=== PATIENT | male | born 1990 | race Caucasian/White ===

== ENCOUNTER 2019-03-26 16:32 | Emergency (ER) | payer SELFPAY ==
[~2019-03-26] VITALS: Ht 185.4 cm; Wt 148.3 kg
[2019-03-26] MEDS ORDERED: ASPIRIN 325 MG TABLET PO ONE (17:00)
[2019-03-26] MEDS ORDERED: MORPHINE SULFATE 2 MG/ML VIAL. IV/SQ PRN (17:00)
[2019-03-26] MEDS ORDERED: NITROGLYCERIN SUBLINGUAL 0.4 MG BOTTLE OF 25. SL PRN (17:00)
[2019-03-26] MEDS ORDERED: IV NORMAL SALINE 1000ML BAG 1,000 ML IV ONE (17:00)
[2019-03-26 17:11] LABS: BASO # 0.1 x10^3/uL (0.0-0.2); BASO % 1 % (0-3); EOS # 0.2 x10^3/uL (0.0-0.7); EOS % 2 % (0-3); HEMATOCRIT 47.2 % (39.0-53.0); LYMPH # 2.9 x10^3/uL (1.0-4.8); LYMPH % 29 % (24-48); MEAN CORPUSCULAR HEMOGLOBIN 29 pg (25-35); MEAN CORPUSCULAR HGB CONC 34 g/dL (31-37); MEAN CORPUSCULAR VOLUME 86 fL (79-100); MONO # 0.8 x10^3/uL (0.0-1.1); MONO % 8 % (0-9); NEUT # 6.2 x10^3/uL (1.8-7.7); NEUT % 61 % (31-73); PLATELET COUNT 328 x10^3/uL (140-400); RED BLOOD COUNT 5.51 x10^6/uL (4.30-5.70); RED CELL DISTRIBUTION WIDTH 14.1 % (11.5-14.5); WHITE BLOOD COUNT 10.1 x10^3/uL (4.0-11.0)
[2019-03-26 17:17] LABS: BILIRUBIN,URINE NEGATIVE (NEG); CLARITY,URINE CLEAR; COLOR,URINE YELLOW; NITRITE,URINE NEGATIVE (NEG); PROTEIN,URINE NEGATIVE (NEG-TRACE)
[2019-03-26 17:22] LABS: GFR 90.3; POTASSIUM 3.4 mmol/L (3.5-5.1)
[2019-03-26 17:23] LABS: BARBITURATES NEG (NEG); BENZODIAZEPINES NEG (NEG); CANNABINOIDS NEG (NEG); COCAINE NEG (NEG); METHADONE NEG (NEG); OPIATES NEG (NEG); PHENCYCLIDINE NEG (NEG)
[2019-03-26 17:24] LABS: AMPHETAMINE/METHAMPHETAMINE NEG (NEG)
[2019-03-26 17:27] LABS: BACTERIA,URINE 0 /HPF (0-FEW); WBC,URINE OCC /HPF (0-4)
[2019-03-26 17:28] LABS: SQUAMOUS EPITHELIAL CELL,UR OCC /LPF
[2019-03-26 17:28] LABS: ALBUMIN 4.6 g/dL (3.4-5.0); MAGNESIUM 1.9 mg/dL (1.8-2.4); TOTAL BILIRUBIN 0.4 mg/dL (0.2-1.0); TOTAL PROTEIN 9.1 g/dL (6.4-8.2)
[2019-03-26 17:35] LABS: D-DIMER 0.49 ug/mlFEU (0.00-0.50)
--- NOTE | 2019-03-26 18:14 | RAD ---
PORTABLE CHEST 1V History: Chest pain. COMPARISON: None FINDINGS: No evidence of a pneumothorax. No pleural effusion. No evidence of airspace disease. Cardiomediastinal silhouette is not enlarged. Bones appear intact. IMPRESSION: No evidence of consolidating infiltrate. Electronically signed by: Bobby Palmer MD (03/26/2019 6:11 PM) [facility]
--- NOTE | 2019-03-26 18:38 | PHYS DOC ---
Past Medical History Past Medical History: Other Additional Past Medical Histor: OBESITY Past Surgical History: No Surgical History Alcohol Use: None Drug Use: None Adult General Chief Complaint Chief Complaint: CHEST PAIN HPI HPI Patient is a 28 year old male with no significant medical history who presents to the ED today with multiple complaints. Patient states for months he has had intermittent episodes of right lower quadrant abdominal pain that has fortunately moved from the right lower quadrant to the left lower quadrant. He states for the last 2 weeks he has had left lower quadrant abdominal pain which has now moved to left-sided chest pain for the last two days. Patient denies any abdominal pain right now. He states his pain to the left side of the chest is mild and intermittent. Denies any exacerbating or relieving factors to his pain. He appears very anxious on arrival to the ED. Mother states patient is supposed to see the PCP on Thursday. She reports patient had blood pressures taken at [facility] and were noted to be in the 180 in the low 100s. Review of Systems Review of Systems Constitutional: Denies fever or chills [] Eyes: Denies change in visual acuity, redness, or eye pain [] HENT: Denies nasal congestion or sore throat [] Respiratory: Denies cough or shortness of breath [] Cardiovascular: Reports left-sided chest pain GI: Denies abdominal pain, nausea, vomiting, bloody stools or diarrhea [] : Denies dysuria or hematuria [] Musculoskeletal: Denies back pain or joint pain [] Integument: Denies rash or skin lesions [] Neurologic: Denies headache, focal weakness or sensory changes [] All other systems were reviewed and found to be within normal limits, except as documented in this note. Current Medications Current Medications Current Medications Medications (Trade) Dose Ordered Sig/[facility] Start Time Stop Time Status Last Admin Dose Admin Aspirin (Heydi Aspirin) 325 mg 1X ONCE 03/26/19 17:00 03/26/19 17:07 DC 03/26/19 17:14 325 MG Morphine Sulfate (Morphine Sulfate) 2 mg PRN Q15MIN PRN 03/26/19 17:00 03/27/19 16:59 Nitroglycerin (Nitrostat) 0.4 mg PRN Q5MIN PRN 03/26/19 17:00 03/27/19 16:59 Sodium Chloride 1,000 ml @ 1,000 mls/hr 1X ONCE 03/26/19 17:00 03/26/19 17:59 DC 03/26/19 17:15 1,000 MLS/HR Allergies Allergies Allergies Coded Allergies Type Severity Reaction Last Updated Verified No Known Drug Allergies 03/26/19 No Physical Exam Physical Exam Constitutional: Obese patient. Well developed, well nourished, no acute distress, non-toxic appearance. [] HENT: Normocephalic, atraumatic, bilateral external ears normal, oropharynx moist, no oral exudates, nose normal. [] Eyes: PERRLA, EOMI, conjunctiva normal, no discharge. [] Neck: Normal range of motion, no tenderness, supple, no stridor. [] Cardiovascular:Heart rate regular rhythm, no murmur [] Lungs & Thorax: Bilateral breath sounds clear to auscultation [] Abdomen: Bowel sounds normal, soft, no tenderness, no masses, no pulsatile masses. [] Skin: Warm, dry, no erythema, no rash. [] Back: No tenderness, no CVA tenderness. [] Extremities: No tenderness, no cyanosis, no clubbing, ROM intact, no edema. [] Neurologic: Alert and oriented X 3, normal motor function, normal sensory fu nction, no focal deficits noted. [] Psychologic: appear anxious Current Patient Data Vital Signs Vital Signs Date Time Temp Pulse Resp B/P (MAP) Pulse Ox O2 Delivery O2 Flow Rate FiO2 03/26/19 18:43 96 18 193/99 (130) 97 Room Air 03/26/19 16:35 97.9 97.9 Lab Values Laboratory Tests Test 03/26/19 16:49 03/26/19 17:08 White Blood Count 10.1 x10^3/uL (4.0-11.0) Red Blood Count 5.51 x10^6/uL (4.30-5.70) Hemoglobin 16.0 g/dL (13.0-17.5) Hematocrit 47.2 % (39.0-53.0) Mean Corpuscular Volume 86 fL (79-100) Mean Corpuscular Hemoglobin 29 pg (25-35) Mean Corpuscular Hemoglobin Concent 34 g/dL (31-37) Red Cell Distribution Width 14.1 % (11.5-14.5) Platelet Count 328 x10^3/uL (140-400) Neutrophils (%) (Auto) 61 % (31-73) Lymphocytes (%) (Auto) 29 % (24-48) Monocytes (%) (Auto) 8 % (0-9) Eosinophils (%) (Auto) 2 % (0-3) Basophils (%) (Auto) 1 % (0-3) Neutrophils # (Auto) 6.2 x10^3/uL (1.8-7.7) Lymphocytes # (Auto) 2.9 x10^3/uL (1.0-4.8) Monocytes # (Auto) 0.8 x10^3/uL (0.0-1.1) Eosinophils # (Auto) 0.2 x10^3/uL (0.0-0.7) Basophils # (Auto) 0.1 x10^3/uL (0.0-0.2) Prothrombin Time 13.0 SEC (11.7-14.0) Prothrombin Time INR 1.0 (0.8-1.1) D-Dimer (Peri) 0.49 ug/mlFEU (0.00-0.50) Sodium Level 142 mmol/L (136-145) Potassium Level 3.4 mmol/L (3.5-5.1) L Chloride Level 102 mmol/L (98-107) Carbon Dioxide Level 26 mmol/L (21-32) Anion Gap 14 (6-14) Blood Urea Nitrogen 13 mg/dL (8-26) Creatinine 1.0 mg/dL (0.7-1.3) Estimated GFR (Cockcroft-Gault) 90.3 BUN/Creatinine Ratio 13 (6-20) Glucose Level 108 mg/dL (70-99) H Calcium Level 10.0 mg/dL (8.5-10.1) Magnesium Level 1.9 mg/dL (1.8-2.4) Total Bilirubin 0.4 mg/dL (0.2-1.0) Aspartate Amino Transferase (AST) 20 U/L (15-37) Alanine Aminotransferase (ALT) 38 U/L (16-63) Alkaline Phosphatase 96 U/L (46-116) Creatine Kinase 103 U/L (39-308) Creatine Kinase MB (Mass) 0.5 ng/mL (0.0-3.6) Creatine Kinase MB Relative Index 0.5 % (0-4) Troponin I Quantitative < 0.017 ng/mL (0.000-0.055) TB-Yjb-E-Type Natriuretic Peptide 32 pg/mL (0-124) Total Protein 9.1 g/dL (6.4-8.2) H Albumin 4.6 g/dL (3.4-5.0) Albumin/Globulin Ratio 1.0 (1.0-1.7) Lipase 107 U/L (73-393) Ethyl Alcohol Level < 10 mg/dL (0-10) Urine Collection Type Unknown Urine Color Yellow Urine Clarity Clear Urine pH 7.0 Urine Specific [place] 1.010 Urine Protein Negative mg/dL (NEG-TRACE) Urine Glucose (UA) Negative mg/dL (NEG) Urine Ketones (Stick) Negative mg/dL (NEG) Urine Blood Negative (NEG) Urine Nitrite Negative (NEG) Urine Bilirubin Negative (NEG) Urine Urobilinogen Dipstick 1.0 mg/dL (0.2 mg/dL) Urine Leukocyte Esterase Negative (NEG) Urine RBC 1-2 /HPF (0-2) Urine WBC Occ /HPF (0-4) Urine Squamous Epithelial Cells Occ /LPF Urine Bacteria 0 /HPF (0-FEW) Urine Opiates Screen Neg (NEG) Urine Methadone Screen Neg (NEG) Urine Barbiturates Neg (NEG) Urine Phencyclidine Screen Neg (NEG) Urine Amphetamine/Methamphetamine Neg (NEG) Urine Benzodiazepines Screen Neg (NEG) Urine Cocaine Screen Neg (NEG) Urine Cannabinoids Screen Neg (NEG) Urine Ethyl Alcohol Neg (NEG) Laboratory Tests 03/26/19 16:49 Laboratory Tests 03/26/19 16:49 EKG EKG [address] Spencer sinus tachycardia, HR 121 no STEMI[] Radiology/Procedures Radiology/Procedures []PROCEDURE: PORTABLE CHEST 1V PORTABLE CHEST 1V History: Chest pain. COMPARISON: None FINDINGS: No evidence of a pneumothorax. No pleural effusion. No evidence of airspace disease. Cardiomediastinal silhouette is not enlarged. Bones appear intact. IMPRESSION: No evidence of consolidating infiltrate. Electronically signed by: Bobby Palmer MD (03/26/2019 6:11 PM) [facility] DICTATED and SIGNED BY: BOBBY PALMER MD DATE: 03/26/191810 Course & Med Decision Making Course & Med Decision Making Pertinent Labs and Imaging studies reviewed. (See chart for details) This is a 28-year-old male patient who presents to the ED today complaining of chest pain that began days ago. She had history of present illness. Patient appears anxious on arrival to the ED with heart rates in the 120. CBC, CMP, d-d kevin, chest [id number] for any acute findings. Urine drug screen is negative. Vitals with blood pressures in the 180s over low 100s. Patient has no history of hypertension but mother reports they are seeing the PCP on Thursday. In the meantime I started him on HCTZ Heart score-0 D/c to home. Dragon Disclaimer Dragon Disclaimer This electronic medical record was generated, in whole or in part, using a voice recognition dictation system. The HEART Score for CP Pts HEART Score for Chest Pain: HEART Score for Chest Pain Response (Comments) Value History Slighlty/Non-Suspicious 0 ECG Normal 0 Age < 45 0 Risk Factors No Risk Factors 0 Troponin < Normal Limit 0 Total 0 Risk Factors: Risk Factors: DM, Current or recent (<one month) smoker, HTN, HLP, family history of CAD, obesity. Risk Scores: Score 0 - 3: 2.5% MACE over next 6 weeks - Discharge Home Score 4 - 6: 20.3% MACE over next 6 weeks - Admit for Clinical Observation Score 7 - 10: 72.7% MACE over next 6 weeks - Early Invasive Strategies Departure Departure Impression: Primary Impression: Chest pain Additional Impressions: Hypertension Anxiety Disposition: HOME, SELF-CARE Condition: STABLE Referrals: JACOB KAUR MD (PCP) follow up on Thursday Patient Instructions: Chest Pain (Nonspecific), [id number] Additional Instructions: You were evaluated in the emergency room for chest pain, your blood pressure was notably high. We started you on a low-dose high blood pressure medicine. Your doctor will follow-up with you on Thursday and she may change it all monitor it, we also put you on a low dose potassium because the medicine you will be taking is a water pill and can cause your potassium to be low Scripts Hydrochlorothiazide (HYDROCHLOROTHIAZIDE TABLET) 12.5 Mg Tablet 12.5 MG PO DAILY for DIURETIC, #5 TAB 0 Refills Prov: WILBERTO CEVALLOS APRN 03/26/19 Potassium Chloride (POTASSIUM CHLORIDE) 10 Meq Tab.sr.24h 10 MEQ PO DAILY, #4 TAB.SR Prov: WILBERTO CEVALLOS AMINA 03/26/19 Problem Qualifiers Primary Impression: Chest pain Chest pain type: unspecified Qualified Codes: R07.9 - Chest pain, unspecified Additional Impressions: Hypertension Hypertension type: unspecified Qualified Codes: I10 - Essential (primary) hypertension WILBERTO CEVALLOS AMINA Mar 26, 2019 18:38
[2019-03-26 18:43] VITALS: BP 193/99
[2019-03-26] MEDS ORDERED: HYDR12.58 PO (18:59)
[2019-03-26] MEDS ORDERED: POTA10TA12 PO (18:59)
--- NOTE | 2019-03-27 11:56 | EKG ---
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
== END 2019-03-26 19:07 | disposition home or self-care (01) ==
LOC: ER 16:32
DX: R07.89 Other chest pain (principal); I10 Essential (primary) hypertension; F41.9 Anxiety disorder, unspecified; R10.31 Right lower quadrant pain; E66.9 Obesity, unspecified; Z68.41 Body mass index [BMI] 40.0-44.9, adult; Z79.82 Long term (current) use of aspirin
CPT/HCPCS: 36415; 71045; 80053; 80307; 81001; 82553; 83690; 83735; 83880; 84484; 85025; 85379; 85610; 93005; 99285; G0480; J7030